=== PATIENT | female | born 1990 | race Caucasian/White ===

== ENCOUNTER 2019-12-21 14:52 | Observation (INO) | payer BC ==
[2019-12-21] MEDS ORDERED: NALBUPHINE HCL INJ 10 MG/1 ML AMPULE INJ ONE (15:54)
[2019-12-21] MEDS ORDERED: ACETAMINOPHEN WITH CODEINE #3 TABLET PO PRN ×2 (16:21)
[2019-12-21 16:30] LABS: APPEARANCE,URINE SLIGHTLY-CLOUDY; BILIRUBIN,URINE NEGATIVE (NEGATIVE); COLOR,URINE YELLOW; GLUCOSE, URINE NEGATIVE (NEGATIVE); KETONES,URINE NEGATIVE (NEGATIVE); LEUKOCYTE ESTERASE,URINE LARGE (NEGATIVE); NITRITE,URINE NEGATIVE (NEGATIVE); PROTEIN,URINE NEGATIVE (NEGATIVE); URINE SPECIFIC GRAVITY 1.008; UROBILINOGEN,URINE NEGATIVE mg/dL (<2.0)
[2019-12-21 16:42] LABS: URINE AMPHETAMINES SCREEN NEGATIVE; URINE BARBITURATES SCREEN NEGATIVE; URINE BENZODIAZEPINES SCREEN NEGATIVE; URINE COCAINE SCREEN NEGATIVE; URINE MARIJUANA (THC) SCREEN NEGATIVE; URINE METHADONE SCREEN NEGATIVE; URINE PHENCYCLIDINE SCREEN NEGATIVE
[2019-12-21] MEDS ORDERED: CEFTRIAXONE 1 GM/D5W RTU 1 GM/50 ML RTUPB IV ONE (16:42)
--- NOTE | 2019-12-21 16:58 | RADIOLOGY REPORT (SQ) ---
EXAM DESCRIPTION: U/S RETROPERITON (RENAL/AORTA) IMAGES COMPLETED DATE/TIME: 12/21/2019 4:41 pm REASON FOR STUDY: left renal uS for r/o abscess, stone COMPARISON: None. TECHNIQUE: Dynamic and static grayscale images acquired of the kidneys and bladder and recorded on P ACS. Additional selected color Doppler and spectral images recorded. LIMITATIONS: None. FINDINGS: RIGHT KIDNEY: Normal size, 10.1 cm. Normal echogenicity. No solid or suspicious masses. No hydronephrosis. No calcifications. LEFT KIDNEY: Normal size, 12.6 cm. Normal echogenicity. No solid or suspicious masses. Moderate hyd ronephrosis. No calcifications. BLADDER: Bladder is empty. OTHER FINDINGS: No other significant finding. IMPRESSION: Moderate left hydronephrosis. TECHNICAL DOCUMENTATION: JOB ID: [id number] 2010 [employer]- All Rights Reserved Reading location - IP/workstation name: [email or web address]
[2019-12-21 16:59] LABS: ABSOLUTE EOSINOPHILS # (AUTO) 0.1 10^3/uL (0.0-0.6); ABSOLUTE LYMPHOCYTES (AUTO) 1.5 10^3/uL (0.5-4.7); ABSOLUTE MONOCYTES (AUTO) 0.7 10^3/uL (0.1-1.4); ABSOLUTE NEUT (AUTO) 9.1 10^3/uL (1.7-8.2); BASOPHILS % (AUTO) 0.3 % (0-2); EOSINOPHILS % (AUTO) 0.7 % (0-6); HEMATOCRIT 35.8 % (36.0-47.0); HEMOGLOBIN 12.3 g/dL (12.0-15.5); LYMPHOCYTES % (AUTO) 13.2 % (13-45); MEAN CORPUSCULAR HEMOGLOBIN 29.2 pg (27.0-33.4); MEAN CORPUSCULAR HGB CONC 34.5 g/dL (32.0-36.0); MEAN CORPUSCULAR VOLUME 85 fl (80-97); MONOCYTES % (AUTO) 6.4 % (3-13); PLATELET COUNT 177 10^3/uL (150-450); RED BLOOD COUNT 4.22 10^6/uL (3.72-5.28); RED CELL DISTRIBUTION WIDTH 13.1 % (11.5-14.0); SEGMENTED NEUTROPHILS % (AUTO) 79.4 % (42-78); TOTAL CELLS COUNTED % (AUTO) 100 %; WHITE BLOOD COUNT 11.5 10^3/uL (4.0-10.5)
--- NOTE | 2019-12-21 17:00 | Admission Physical ---
Datetime Report Generated by CPN: 12/21/2019 17:00 CURRENT ADMISSION Chief Complaint: Sent from OB Office for Evaluation and Treatment - Please Specify Indication for Induction: Not Applicable Admit Impression : No Active Labor; Medical Complication Admit Impression- Other: Pyelonephritis Lt Admit Plan- Other: GDM 38 wks ALLERGIES Medication Allergies: No Medication Allergies: No Known Allergies (12/21/2019) Latex: No Latex Allergies OBSTETRICAL HISTORY EDC: 12/30/2019 00:00 : 1 Para: 0 Term: 0 : 0 SAB: 0 IAB: 0 Ectopic: 0 Livin Cesareans: 0 VBACs: 0 Multiple Births: 0 Gestational Diabetes: Yes Rh Sensitization: No Incompetent Cervix: No ALEXANDRE: No Infertility: No ART Treatment: No Uterine Anomaly: No IUGR: No Hx Previous C/S: No Macrosomia: No Hx Loss/Stillborn: No PIH: No Hx : No Placenta Previa/Abruption: No Depression/PP Depression: No PTL/PROM: No Post Hemorrhage: No Current Procedures: Ultrasound; NST Obstetrical History Comments: G1- Current GDM SEE RECORDS Alcohol: No Marijuana : No Cocaine: No Other Illicit Drugs: No Cigarettes: Never Smoker. 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 Surgery: No Heart Disease: No Hosp/Surgery: No Autoimmune Disorder: No Anesthetic Complications: No Kidney Disease: Yes Abnormal Pap Smear: No Neuro/Epilepsy: No Psychiatric Disorders: No Other Medical Diseases: No Hepatitis/Liver Disease: No Significant Family History: No Varicosities/Phlebitis: No Trauma/Violence : No Thyroid Dysfunction: No INFECTIOUS HISTORY Gonorrhea: No Genital Herpes: No Chlamydia: No Tuberculosis: No Syphilis: No Hepatitis: No HIV/AIDS Exposure: No Rash or Viral Illness: No HPV: No PHYSICAL EXAM General: Normal HEENT: Deferred Neurologic: Normal Thyroid: Deferred Heart: Normal Lungs: Normal Breast: Deferred Back: Abnormal Abdomen: Normal Genitourinary Exam: Normal Extremities: Normal DTRs: Deferred Pelvic Type: Not Done Physical Exam Comments: sent from office for L CVAT cervix exam per RN closed VAGINAL EXAM Dilatation: 0 FETUS A EGA: 38.5 FHR- Baseline: 130 Variability: Moderate 6-25bpm FHR Category: Category I Presentation: Vertex Admit Comment: GDM, well controlled with diet Had + Urine Culture for E-Coli on 11/29 was treated inadequately with macrobid finished abx over a week ago presented to [facility] for routine PNC care with c/o back pain Denies fever, but reports new onset of nausea this week, no vomiting PLANS FOR LABOR AND DELIVERY Labor and Delivery: None Pain Management: Epidural Feeding Preference: Breast Benefit of Breast Feed Discussed: Yes Circumcision: Yes INFORMED CONSENT Assignment: Carolyn Johnson MD Signature: with User ID: [email or web address] : with User ID: [email or web address]
[2019-12-21 17:35] LABS: ALBUMIN 3.6 g/dL (3.5-5.0); ALKALINE PHOSPHATASE 149 U/L (38-126); ANION GAP 8 (5-19); ASPARTATE AMINO TRANSFERASE 26 U/L (14-36); BILIRUBIN,DIRECT 0.1 mg/dL (0.0-0.4); BILIRUBIN,TOTAL 0.3 mg/dL (0.2-1.3); BLOOD UREA NITROGEN 11 mg/dL (7-20); CALCIUM 9.3 mg/dL (8.4-10.2); CARBON DIOXIDE 24 mmol/L (22-30); CHLORIDE 104 mmol/L (98-107); GLUCOSE 76 mg/dL (75-110); POTASSIUM 4.1 mmol/L (3.6-5.0); TOTAL PROTEIN 6.3 g/dL (6.3-8.2)
[2019-12-21] MEDS: CEFTRIAXONE 1 GM/D5W RTU 1 GM/50 ML RTUPB IV SCH (17:45)
[2019-12-21] MEDS ORDERED: ACETAMINOPHEN WITH CODEINE #3 TABLET ONE (18:03)
[2019-12-21] MEDS: RINGERS SOLUTION,LACTATED 1,000 ML IV PRN (18:05)
[2019-12-22] MEDS: CEFTRIAXONE 1 GM/D5W RTU 1 GM/50 ML RTUPB IV SCH ×2 (06:22→17:55)
--- NOTE | 2019-12-22 09:28 | PDOC PROGRESS REPORT ---
Subjective Progress Note for:: 12/22/19 Subjective:: pt feels better Reason For Visit: LABOR CHECK/23 HOUR OBS Physical Exam - Physical Exam Vital Signs: Temp Pulse Resp BP Pulse Ox 97.9 F 72 16 103/59 L 100 12/22/19 08:41 12/22/19 08:00 12/22/19 08:00 12/22/19 08:00 12/22/19 08:00 Intake & Output 12/21/19 12/22/19 12/23/19 06:59 06:59 06:59 Output Total 300 Balance -300 Weight 74.389 kg General appearance: PRESENT: no acute distress Respiratory exam: PRESENT: clear to auscultation dennise Cardiovascular exam: PRESENT: RRR Result Laboratory Results: 12/21/19 16:14 12/21/19 16:14 12/21/19 12/21/19 12/21/19 15:16 16:14 16:14 WBC 11.5 H RBC 4.22 Hgb 12.3 Hct 35.8 L MCV 85 MCH 29.2 MCHC 34.5 RDW 13.1 Plt Count 177 Seg Neutrophils % 79.4 H Sodium Potassium Chloride Carbon Dioxide Anion Gap BUN Creatinine Est GFR ( Amer) Glucose Calcium Total Bilirubin AST Alkaline Phosphatase Total Protein Albumin Urine Color YELLOW Urine Appearance SLIGHTLY-CLOUDY Urine pH 7.0 Ur Specific [place] 1.008 Urine Protein NEGATIVE Urine Glucose (UA) NEGATIVE Urine Ketones NEGATIVE Urine Blood SMALL H Urine Nitrite NEGATIVE Ur Leukocyte Esterase LARGE H Urine WBC (Auto) 111 Urine RBC (Auto) 4 Blood Type O POSITIVE Antibody Screen NEGATIVE 12/21/19 16:14 WBC RBC Hgb Hct MCV MCH MCHC RDW Plt Count Seg Neutrophils % Sodium 135.7 L Potassium 4.1 Chloride 104 Carbon Dioxide 24 Anion Gap 8 BUN 11 Creatinine 0.80 Est GFR ( Amer) > 60 Glucose 76 Calcium 9.3 Total Bilirubin 0.3 AST 26 Alkaline Phosphatase 149 H Total Protein 6.3 Albumin 3.6 Urine Color Urine Appearance Urine pH Ur Specific [place] Urine Protein Urine Glucose (UA) Urine Ketones Urine Blood Urine Nitrite Ur Leukocyte Esterase Urine WBC (Auto) Urine RBC (Auto) Blood Type Antibody Screen Impressions: Renal Ultrasound 12/21/19 15:46 IMPRESSION: Moderate left hydronephrosis. Assessment & Plan - Time Time Spent with patient: Less than 15 minutes Medications reviewed and adjusted accordingly: Yes - Plan Summary Plan Summary: continue IV antibiotics
[2019-12-22] MEDS: RINGERS SOLUTION,LACTATED 1,000 ML IV PRN (17:55)
[2019-12-23] MEDS: CEFTRIAXONE 1 GM/D5W RTU 1 GM/50 ML RTUPB IV SCH ×2 (05:36→17:09)
[2019-12-23 07:08] LABS: ABSOLUTE EOSINOPHILS # (AUTO) 0.1 10^3/uL (0.0-0.6); ABSOLUTE LYMPHOCYTES (AUTO) 1.7 10^3/uL (0.5-4.7); ABSOLUTE MONOCYTES (AUTO) 0.8 10^3/uL (0.1-1.4); ABSOLUTE NEUT (AUTO) 5.8 10^3/uL (1.7-8.2); BASOPHILS % (AUTO) 0.3 % (0-2); EOSINOPHILS % (AUTO) 1.5 % (0-6); HEMATOCRIT 31.3 % (36.0-47.0); HEMOGLOBIN 10.8 g/dL (12.0-15.5); LYMPHOCYTES % (AUTO) 19.8 % (13-45); MEAN CORPUSCULAR HEMOGLOBIN 29.4 pg (27.0-33.4); MEAN CORPUSCULAR HGB CONC 34.5 g/dL (32.0-36.0); MEAN CORPUSCULAR VOLUME 85 fl (80-97); MONOCYTES % (AUTO) 9.8 % (3-13); PLATELET COUNT 145 10^3/uL (150-450); RED BLOOD COUNT 3.68 10^6/uL (3.72-5.28); RED CELL DISTRIBUTION WIDTH 13.2 % (11.5-14.0); SEGMENTED NEUTROPHILS % (AUTO) 68.6 % (42-78); TOTAL CELLS COUNTED % (AUTO) 100 %; WHITE BLOOD COUNT 8.5 10^3/uL (4.0-10.5)
--- NOTE | 2019-12-23 10:27 | PDOC DISCHARGE SUMMARY ---
Impression - Admit/DC Date/PCP Admission Date/Primary Care Provider: 12/21/19 16:03 JAYDEN GARCIA MD Discharge Date: 12/23/19 - Discharge Diagnosis (1) Pyelonephritis affecting Is this a current diagnosis for this admission?: Yes - Additional Information Resuscitation Status: Full Code Discharge Diet: As Tolerated Discharge Activity: Activity As Tolerated Referrals: JAYDEN GARCIA MD [Primary Care Provider] - Home Medications: Prenat 115/Iron Fum/Folic/Dss [ 19 Tablet] 1 each PO DAILY 12/21/19 History of Present Illiness History of Present Illness: JORGE LUIS KRAUS is a 29 year old female admitted with pyelo and placed on IV anitibiotics. pt remained afebrile and wbc now wnl Physical Exam - Physical Exam Vital Signs: Temp Pulse Resp BP Pulse Ox 97.3 F 78 16 101/50 L 100 12/23/19 07:03 12/23/19 07:03 12/23/19 07:03 12/23/19 07:03 12/23/19 07:03 Intake & Output 12/22/19 12/23/19 12/24/19 06:59 06:59 06:59 Intake Total 50 1050 Output Total 300 Balance -250 1050 Weight 74.389 kg General appearance: PRESENT: no acute distress Respiratory exam: PRESENT: clear to auscultation dennise Cardiovascular exam: PRESENT: RRR Results Laboratory Results: WBC 8.5 10^3/uL (4.0-10.5) 12/23/19 06:52 RBC 3.68 10^6/uL (3.72-5.28) L 12/23/19 06:52 Hgb 10.8 g/dL (12.0-15.5) L 12/23/19 06:52 Hct 31.3 % (36.0-47.0) L 12/23/19 06:52 MCV 85 fl (80-97) 12/23/19 06:52 MCH 29.4 pg (27.0-33.4) 12/23/19 06:52 MCHC 34.5 g/dL (32.0-36.0) 12/23/19 06:52 RDW 13.2 % (11.5-14.0) 12/23/19 06:52 Plt Count 145 10^3/uL (150-450) L 12/23/19 06:52 Lymph % (Auto) 19.8 % (13-45) 12/23/19 06:52 [place] % (Auto) 9.8 % (3-13) 12/23/19 06:52 Eos % (Auto) 1.5 % (0-6) 12/23/19 06:52 Baso % (Auto) 0.3 % (0-2) 12/23/19 06:52 Absolute Neuts (auto) 5.8 10^3/uL (1.7-8.2) 12/23/19 06:52 Absolute Lymphs (auto) 1.7 10^3/uL (0.5-4.7) 12/23/19 06:52 Absolute Monos (auto) 0.8 10^3/uL (0.1-1.4) 12/23/19 06:52 Absolute Eos (auto) 0.1 10^3/uL (0.0-0.6) 12/23/19 06:52 Absolute Basos (auto) 0.0 10^3/uL (0.0-0.2) 12/23/19 06:52 Seg Neutrophils % 68.6 % (42-78) 12/23/19 06:52 Sodium 135.7 mmol/L (137-145) L 12/21/19 16:14 Potassium 4.1 mmol/L (3.6-5.0) 12/21/19 16:14 Chloride 104 mmol/L (98-107) 12/21/19 16:14 Carbon Dioxide 24 mmol/L (22-30) 12/21/19 16:14 Anion Gap 8 (5-19) 12/21/19 16:14 BUN 11 mg/dL (7-20) 12/21/19 16:14 Creatinine 0.80 mg/dL (0.52-1.25) 12/21/19 16:14 Est GFR ( Amer) > 60 (>60) 12/21/19 16:14 Est GFR (MDRD) Non-Af > 60 (>60) 12/21/19 16:14 Glucose 76 mg/dL (75-110) 12/21/19 16:14 Calcium 9.3 mg/dL (8.4-10.2) 12/21/19 16:14 Total Bilirubin 0.3 mg/dL (0.2-1.3) 12/21/19 16:14 Direct Bilirubin 0.1 mg/dL (0.0-0.4) 12/21/19 16:14 Neonat Total Bilirubin Not Reportable 12/21/19 16:14 Neonat Direct Bilirubin Not Reportable 12/21/19 16:14 Neonat Indirect Bili Not Reportable 12/21/19 16:14 AST 26 U/L (14-36) 12/21/19 16:14 ALT 12 U/L (<35) 12/21/19 16:14 Alkaline Phosphatase 149 U/L (38-126) H 12/21/19 16:14 Total Protein 6.3 g/dL (6.3-8.2) 12/21/19 16:14 Albumin 3.6 g/dL (3.5-5.0) 12/21/19 16:14 Urine Color YELLOW 12/21/19 15:16 Urine Appearance SLIGHTLY-CLOUDY 12/21/19 15:16 Urine pH 7.0 (5.0-9.0) 12/21/19 15:16 Ur Specific [place] 1.008 12/21/19 15:16 Urine Protein NEGATIVE mg/dL (NEGATIVE) 12/21/19 15:16 Urine Glucose (UA) NEGATIVE mg/dL (NEGATIVE) 12/21/19 15:16 Urine Ketones NEGATIVE mg/dL (NEGATIVE) 12/21/19 15:16 Urine Blood SMALL (NEGATIVE) H 12/21/19 15:16 Urine Nitrite NEGATIVE (NEGATIVE) 12/21/19 15:16 Urine Bilirubin NEGATIVE (NEGATIVE) 12/21/19 15:16 Urine Urobilinogen NEGATIVE mg/dL (<2.0) 12/21/19 15:16 Ur Leukocyte Esterase LARGE (NEGATIVE) H 12/21/19 15:16 Urine WBC (Auto) 111 /HPF 12/21/19 15:16 Urine RBC (Auto) 4 /HPF 12/21/19 15:16 Urine Bacteria (Auto) 1+ /HPF 12/21/19 15:16 Squamous Epi Cells Auto 5 /HPF 12/21/19 15:16 Urine Mucus (Auto) RARE /LPF 12/21/19 15:16 Urine Ascorbic Acid NEGATIVE (NEGATIVE) 12/21/19 15:16 Urine Opiates Screen NEGATIVE 12/21/19 15:16 Urine Methadone Screen NEGATIVE 12/21/19 15:16 Ur Barbiturates Screen NEGATIVE 12/21/19 15:16 Ur Phencyclidine Scrn NEGATIVE 12/21/19 15:16 Ur Amphetamines Screen NEGATIVE 12/21/19 15:16 U Benzodiazepines Scrn NEGATIVE 12/21/19 15:16 Urine Cocaine Screen NEGATIVE 12/21/19 15:16 U Marijuana (THC) Screen NEGATIVE 12/21/19 15:16 Blood Type O POSITIVE 12/21/19 16:14 Antibody Screen NEGATIVE 12/21/19 16:14 Impressions: Renal Ultrasound 12/21/19 15:46 IMPRESSION: Moderate left hydronephrosis. Plan Time Spent: Less than 30 Minutes Stroke Is this a Stroke Patient?: No Acute Heart Failure Is this a Heart Failure Patient?: No
[2019-12-23] MEDS: RINGERS SOLUTION,LACTATED 1,000 ML IV PRN (11:03)
[2019-12-23 16:12] VITALS: BP 103/52
== END 2019-12-23 18:38 | disposition home or self-care (01) ==
LOC: LC 14:52 → LR 16:03 → 2S 18:32
PROVIDERS: ADMIT Student in an Organized Health Care Education/Training Program; ATTEND Student in an Organized Health Care Education/Training Program
DX: O23.03 Infections of kidney in pregnancy, third trimester (principal); N13.6 Pyonephrosis; O24.410 Gestational diabetes mellitus in pregnancy, diet controlled; Z3A.38 38 weeks gestation of pregnancy
CPT/HCPCS: 86900; 86901; 36415 ×2; 87086; 86850; 85025 ×2; 87088; 86592; 80053; 81001; 87186; 80307; 76770; G0378 ×3; G0379; J7120 ×2; J0696 ×3; 99281

== ENCOUNTER 2020-01-07 18:55 | Inpatient (IN) | payer BC ==
[2020-01-07] MEDS ORDERED: RINGERS SOLUTION,LACTATED 1,000 ML IV ONE (19:07)
[2020-01-07] MEDS ORDERED: DINOPROSTONE 10 MG VAGINAL INSERT.SR PV PRN (19:07)
[2020-01-07] MEDS ORDERED: RINGERS SOLUTION,LACTATED 300 ML IV ONE (19:08)
[2020-01-07] MEDS ORDERED: ACETAMINOPHEN 325 MG TABLET PO PRN (19:08)
[2020-01-07] MEDS ORDERED: MAG HYDROX/AL HYDROX/SIMETH SUSP 30 ML UDCUP PO PRN (19:08)
[2020-01-07] MEDS ORDERED: ZOLPIDEM TARTRATE 5 MG TABLET PO PRN (19:08)
[2020-01-07] MEDS ORDERED: DINOPROSTONE 10 MG VAGINAL INSERT.SR PV ONE (19:08)
[2020-01-07] MEDS ORDERED: RINGERS SOLUTION,LACTATED 1,000 ML IV PRN (19:08)
[2020-01-07] MEDS ORDERED: DINOPROSTONE 10 MG VAGINAL INSERT.SR ONE (19:48)
[2020-01-07 20:10] LABS: ABSOLUTE EOSINOPHILS # (AUTO) 0.1 10^3/uL (0.0-0.6); ABSOLUTE LYMPHOCYTES (AUTO) 1.6 10^3/uL (0.5-4.7); ABSOLUTE MONOCYTES (AUTO) 0.7 10^3/uL (0.1-1.4); ABSOLUTE NEUT (AUTO) 6.6 10^3/uL (1.7-8.2); BASOPHILS % (AUTO) 0.2 % (0-2); EOSINOPHILS % (AUTO) 0.9 % (0-6); HEMATOCRIT 34.9 % (36.0-47.0); HEMOGLOBIN 12.1 g/dL (12.0-15.5); LYMPHOCYTES % (AUTO) 17.9 % (13-45); MEAN CORPUSCULAR HEMOGLOBIN 29.5 pg (27.0-33.4); MEAN CORPUSCULAR HGB CONC 34.6 g/dL (32.0-36.0); MEAN CORPUSCULAR VOLUME 85 fl (80-97); MONOCYTES % (AUTO) 7.6 % (3-13); PLATELET COUNT 166 10^3/uL (150-450); RED BLOOD COUNT 4.09 10^6/uL (3.72-5.28); RED CELL DISTRIBUTION WIDTH 13.2 % (11.5-14.0); SEGMENTED NEUTROPHILS % (AUTO) 73.4 % (42-78); TOTAL CELLS COUNTED % (AUTO) 100 %
[2020-01-07 20:26] LABS: APPEARANCE,URINE CLOUDY; BILIRUBIN,URINE NEGATIVE (NEGATIVE); COLOR,URINE YELLOW; GLUCOSE, URINE NEGATIVE (NEGATIVE); KETONES,URINE NEGATIVE (NEGATIVE); LEUKOCYTE ESTERASE,URINE MODERATE (NEGATIVE); NITRITE,URINE NEGATIVE (NEGATIVE); PROTEIN,URINE NEGATIVE (NEGATIVE); URINE SPECIFIC GRAVITY 1.011; UROBILINOGEN,URINE NEGATIVE mg/dL (<2.0)
[2020-01-07] MEDS: RINGERS SOLUTION,LACTATED 1,000 ML IV PRN ×2 (20:26→22:44)
[2020-01-07 20:45] LABS: URINE AMPHETAMINES SCREEN NEGATIVE; URINE BARBITURATES SCREEN NEGATIVE; URINE BENZODIAZEPINES SCREEN NEGATIVE; URINE COCAINE SCREEN NEGATIVE; URINE MARIJUANA (THC) SCREEN NEGATIVE; URINE METHADONE SCREEN NEGATIVE; URINE PHENCYCLIDINE SCREEN NEGATIVE
[2020-01-07] MEDS ORDERED: ZOLPIDEM TARTRATE 5 MG TABLET ONE (22:39)
[2020-01-08] MEDS ORDERED: ONDANSETRON HCL INJ/PF 4 MG/2 ML SDV ONE (04:27)
[2020-01-08] MEDS ORDERED: ONDANSETRON HCL INJ/PF 4 MG/2 ML SDV IV ONE (04:29)
[2020-01-08] MEDS ORDERED: NALBUPHINE HCL INJ 10 MG/1 ML AMPULE ONE (04:56)
[2020-01-08] MEDS ORDERED: PROMETHAZINE HCL INJ 25 MG/1 ML VIAL ONE (04:56)
[2020-01-08] MEDS ORDERED: PROMETHAZINE HCL INJ 25 MG/1 ML VIAL IV ONE (04:58)
[2020-01-08] MEDS ORDERED: NALBUPHINE HCL INJ 10 MG/1 ML AMPULE INJ ONE (04:58)
--- NOTE | 2020-01-08 05:16 | Admission Physical ---
Datetime Report Generated by CPN: 01/08/2020 05:16 CURRENT ADMISSION Chief Complaint: Scheduled Induction of Labor Indication for Induction: Post Dates Admit Impression : Term, Intrauterine ; Intact Membranes; Induction of Labor Admit Impression- Other: Pyelonephritis Lt Admit Plan: Admit to Unit; Initiate Labor Induction Protocol Admit Plan- Other: GDM 38 wks ALLERGIES Medication Allergies: No Medication Allergies: No Known Allergies (12/21/2019) Latex: No Latex Allergies OBSTETRICAL HISTORY EDC: 12/30/2019 00:00 : 1 Para: 0 Term: 0 : 0 SAB: 0 IAB: 0 Ectopic: 0 Livin Cesareans: 0 VBACs: 0 Multiple Births: 0 Gestational Diabetes: Yes Rh Sensitization: No Incompetent Cervix: No ALEXANDRE: No Infertility: No ART Treatment: No Uterine Anomaly: No IUGR: No Hx Previous C/S: No Macrosomia: No Hx Loss/Stillborn: No PIH: No Hx : No Placenta Previa/Abruption: No Depression/PP Depression: No PTL/PROM: No Post Hemorrhage: No Current Procedures: Ultrasound; NST Obstetrical History Comments: G1- Current GDM SEE RECORDS Alcohol: No Marijuana : No Cocaine: No Other Illicit Drugs: No Cigarettes: Never Smoker. 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 Heart Disease: No Hosp/Surgery: No Autoimmune Disorder: No Anesthetic Complications: No Kidney Disease: Yes Abnormal Pap Smear: No Neuro/Epilepsy: No Psychiatric Disorders: No Other Medical Diseases: No Hepatitis/Liver Disease: No Significant Family History: No Varicosities/Phlebitis: No Trauma/Violence : No Thyroid Dysfunction: No Medical History Comments: GDM with current , Pyelonephritis with current Dec 2019 INFECTIOUS HISTORY Gonorrhea: No Genital Herpes: No Chlamydia: No Tuberculosis: No Syphilis: No Hepatitis: No HIV/AIDS Exposure: No Rash or Viral Illness: No HPV: No PHYSICAL EXAM General: Normal HEENT: Normal Neurologic: Normal Thyroid: Normal Heart: Normal Lungs: Normal Breast: Deferred Back: Normal Abdomen: Normal Genitourinary Exam: Normal Extremities: Normal DTRs: Normal Pelvic Type: Adequate Physical Exam Comments: sent from office for L CVAT cervix exam per RN closed Vital Signs: Reviewed VAGINAL EXAM Dilatation: 1 Effacement: 50 Station: -2 MEMBRANES Pooling: Negative Membranes: Intact FETUS A EGA: 41.2 Monitoring: External US FHR- Baseline: 120 Variability: Moderate 6-25bpm Decelerations: None FHR Category: Category I Presentation: Vertex Admit Comment: EFW 8-9 lbs, gdm PLANS FOR LABOR AND DELIVERY Labor and Delivery: None Pain Management: Epidural Feeding Preference: Breast Benefit of Breast Feed Discussed: Yes Circumcision: Yes INFORMED CONSENT Assignment: Carolyn Johnson MD Signature: with User ID: Eric : with User ID: Eric
[2020-01-08] MEDS ORDERED: OXYTOCIN/0.9 % SODIUM CHLORIDE 30 UNIT/500 ML RTUINJ IV PRN (07:57)
[2020-01-08] MEDS ORDERED: EPHEDRINE SULFATE INJ 50 MG/1 ML AMPULE ONE (08:25)
[2020-01-08] MEDS ORDERED: FENTANYL/BUPIVACAINE/NS/PF 300 MCG/150 ML RTUINJ EPI ONE ×2 (08:26→23:03)
[2020-01-08] MEDS ORDERED: ROPIVACAINE HCL 0.2% INJ/PF (2 MG/ML) 20 ML SDV ONE (08:26)
[2020-01-08] MEDS ORDERED: OXYTOCIN/0.9 % SODIUM CHLORIDE 30 UNIT/500 ML RTUINJ ONE (10:07)
[2020-01-08] MEDS ORDERED: ROPIVACAINE HCL 0.5% INJ/PF (5 MG/1 ML) 30 ML SDV ONE (12:12)
[2020-01-08] MEDS: RINGERS SOLUTION,LACTATED 1,000 ML IV PRN ×2 (12:46→17:47)
[2020-01-08] MEDS ORDERED: ACETAMINOPHEN 325 MG TABLET ONE (15:18)
[2020-01-08] MEDS ORDERED: AMPICILLIN SOD INJ 2 GM VIAL IV ONE (16:23)
[2020-01-08] MEDS ORDERED: GENTAMICIN SULFATE INJ 80 MG/2 ML VIAL IV ONE (16:31)
[2020-01-08] MEDS ORDERED: DIPHENHYDRAMINE HCL 50 MG/ML VIAL IV ONE (16:51)
[2020-01-08] MEDS ORDERED: DIPHENHYDRAMINE HCL 50 MG/ML VIAL ONE (16:57)
[2020-01-08] MEDS ORDERED: AMPICILLIN SOD INJ 2 GM VIAL ONE (16:58)
[2020-01-08] MEDS ORDERED: GENTAMICIN SULFATE 100 MG in DEXTROSE 5%-WATER 100 ML IV ONE (18:00)
[2020-01-08] MEDS ORDERED: AMPICILLIN SOD INJ 2 GM VIAL IV SCH (23:00)
[2020-01-08] MEDS: AMPICILLIN SODIUM 2 GM in NORMAL SALINE 100 ML IV SCH (23:18)
[2020-01-09] MEDS ORDERED: GENTAMICIN SULFATE INJ 80 MG/2 ML VIAL IV SCH (00:30)
[2020-01-09] MEDS: AMPICILLIN SODIUM 2 GM in NORMAL SALINE 100 ML IV SCH ×3 (05:03→19:47)
[2020-01-09] MEDS ORDERED: LIDOCAINE 1% INJ-PF (10 MG/ML) 30 ML SDV ONE (05:21)
[2020-01-09] MEDS ORDERED: IBUPROFEN 800 MG TABLET ONE (06:05)
[2020-01-09] MEDS ORDERED: ZOLPIDEM TARTRATE 5 MG TABLET PO PRN (06:27)
[2020-01-09] MEDS ORDERED: OXYTOCIN/0.9 % SODIUM CHLORIDE 30 UNIT/500 ML RTUINJ IV PRN (06:27)
[2020-01-09] MEDS ORDERED: DIPH/PERTUSS(ACELL)/TETANUS VAC/PF 0.5 ML SYR (>=10YO) IM PRN (06:27)
[2020-01-09] MEDS ORDERED: DIBUCAINE 1% OINTMENT 28 GM TP PRN (06:27)
[2020-01-09] MEDS ORDERED: PROMETHAZINE HCL 25 MG SUPP.RECT PR PRN (06:27)
[2020-01-09] MEDS ORDERED: PSEUDOEPHEDRINE HCL 30 MG TABLET PO PRN (06:27)
[2020-01-09] MEDS ORDERED: MAGNESIUM HYDROXIDE SUSP 30 ML UDCUP PO PRN (06:27)
[2020-01-09] MEDS ORDERED: MEASLES,MUMPS&RUBELLA VACC/PF 0.5 ML VIAL SUBCUT PRN (06:27)
[2020-01-09] MEDS ORDERED: PROMETHAZINE HCL INJ 25 MG/1 ML VIAL IV PRN (06:27)
[2020-01-09] MEDS ORDERED: NA PHOS,M-B/NA PHOS,DI-BA (ADULT) 133 ML ENEMA PR PRN (06:27)
[2020-01-09] MEDS ORDERED: ACETAMINOPHEN 325 MG TABLET PO PRN (06:27)
[2020-01-09] MEDS ORDERED: DIPHENHYDRAMINE HCL 25 MG CAPSULE PO PRN (06:27)
[2020-01-09] MEDS ORDERED: ACETAMINOPHEN 650 MG SUPP.RECT PR PRN (06:27)
[2020-01-09] MEDS ORDERED: PROMETHAZINE HCL 25 MG TABLET PO PRN (06:27)
[2020-01-09] MEDS ORDERED: BENZOCAINE/MENTHOL AEROSOL SPRAY 56 ML TOP PRN (06:27)
[2020-01-09] MEDS ORDERED: GLYCERIN/WITCH HAZEL LEAF 1 EACH MED..WIPE TP PRN (06:27)
[2020-01-09] MEDS ORDERED: ACETAMINOPHEN WITH CODEINE #3 TABLET PO PRN ×2 (06:27)
--- NOTE | 2020-01-09 08:53 | Delivery Summary ---
Del Sum A-C Datetime Report Generated by CPN: 01/09/2020 08:52 DELIVERY PERSONNEL DELIVERY PERSONNEL: [id number] Delivery Doctor:: Kalli Mansfield MD Labor and Delivery Nurse:: Briana Carvalho RNcar sander Nurse:: Chelle Mckee RN Idea Man/GENERAL OPHTHALMOLOGIST: Cinthyamonae Tobar, ST MATERNAL INFORMATION Delivery Anesthesia: Epidural Medications After Delivery: Pitocin 30 Units in 500ml NS/D5W Estimated Blood Loss (ml): 200 Maternal Complications: Chorioamnionitis LABOR SUMMARY EDC: 12/30/2019 00:00 No. Babies in Womb: 1 Attempted: No Labor Anesthesia: Epidural LABOR INFORMATION Reason for Induction: Post Dates; Maternal Diabetes Onset of Labor: 01/08/2020 05:03 Complete Dilatation: 01/09/2020 02:50 Cervical Ripening Agents: Cervidil Oxytocin: Induction Group B Beta Strep: Negative Antibiotics # of Doses: 2 Antibiotics Time of Last Dose: 01/09/2020 05:24 Name of Antibiotic Given: amp and gent Steroids Given: None Reason Steroids Not Administered: Not Applicable MEMBRANES Membranes Rupture Method: Spontaneous Rupture of Membranes: 01/08/2020 14:08 Length of Rupture (hr): 15.13 Amniotic Fluid Color: Light Meconium? Amniotic Fluid Amount: Moderate Amniotic Fluid Odor: Normal STAGES OF LABOR Stage 1 hr: 21 Stage 1 min: 47 Stage 2 hr: 2 Stage 2 min: 26 Stage 3 hr: 0 Stage 3 min: 3 Total Time in Labor hr: 24 Total Time in Labor min: 16 VAGINAL DELIVERY Episiotomy: None Laceration #1: Vaginal Laceration Extension #1: First Degree Laceration Repair: Yes Laceration Repair Note: 2-0 chromic running stitch done on left labia due to 1st degree gash. Sponge Count Correct: Yes Sharps Count Correct: Yes CSECTION DELIVERY Primary Indication: N/A BABY A INFORMATION Infant Delivery Date/Time: 01/09/2020 05:16 Method of Delivery: Vaginal Nurse Controlled Delivery: No Born in Route : No : N/A Forceps: N/A Vacuum Extraction: N/A Shoulder Dystocia : No PRESENTATION/POSITION BABY A Presentation: Cephalic Cephalic Presentation: Vertex Vertex Position: Left Occipital Anterior Breech Presentation: N/A PLACENTA INFORMATION BABY A Placenta Delivery Time : 01/09/2020 05:19 Placenta Method of Delivery: Spontaneous Placenta Status: Delivered SCORES BABY A Heart Rate 1 min: >100 bpm Resp Effort 1 min: Absent Reflex Irritability 1 min: No Response Muscle Tone 1 min: Flaccid Color 1 min: Blue/Pale Resuscitation Effort 1 min: Tactile Stimulation; Oxygen; PPV/NCPAP SCORE 1 MIN: 2 Heart Rate 5 min: >100 bpm Resp Effort 5 min: Slow, Irregular Reflex Irritability 5 min: Grimace Muscle Tone 5 min: Some Flexion of Extremities Color 5 min: Body [place]ridge, Extremities Blue Resuscitation Effort 5 min: Tactile Stimulation; Oxygen SCORE 5 MIN: 6 Heart Rate 10 min: >100 bpm Resp Effort 10 min: Good Cry Reflex Irritability 10 min: Cough or Sneeze or Pulls Away Muscle Tone 10 min: Some Flexion of Extremities Color 10 min: Body [place], Extremities Blue SCORE 10 MIN: 8 INFORMATION BABY A Gestational Age at Delivery: 41.2 Gestational Status: Late Term- 41- 41.6 Weeks Outcome : Liveborn Infant Condition : Fair Sex: Male IDENTIFICATION BABY A Infant Verification Date/Time: 01/09/2020 05:32 ID Band Number: [id number] Mother's Name Verified: Yes Infant RN Verifying : Ilda CantuPIYUSH Additional Verifying Personnel: Ousmane Velasquez RN WEIGHT/LENGTH BABY A Infant Birthweight (gm): 3790 Weight (lb): 8 Infant Weight (oz): 6 Length (in): 21.25 Infant Length (cm): 53.98 CORD INFORMATION BABY A No. Cord Vessels: 3 Nuchal Cord : Around Neck x1, Tight Cord Blood Taken: Yes-For Eval (Mom's Blood Type - or O+) Suction: Mouth; Nose BABY B INFORMATION : N/A SIGNATURES Signature: with User ID: Mari : I was personally available for consultation and serving as supervising physician for the MLP.
--- NOTE | 2020-01-09 08:53 | Birth Certificate Data ---
Cert Data Datetime Report Generated by CPN: 01/09/2020 08:52 CERTIFICATE DATA Delivery Provider: Kalli Mansfield MD (12/21/2019 15:25:AMY Hook) 47a. Care: Yes (12/21/2019 15:25:Ashley Suarez RN) 47b. Date of First Visit: 06/05/2019 00:00 (12/21/2019 15:25:Ashley Suarez RN) 47c. Date of Last Visit: 12/21/2019 00:00 (12/21/2019 15:25:Ashley Suarez RN) 47d. Number of Visits: 14 (12/21/2019 15:25:Ashley Suarez RN) 48a. Number of Prev Live Births: 0 (12/21/2019 15:25:Ashley Suarez RN) 48b. Now Livin (12/21/2019 15:25:Ashley Suarez RN) 48c. Live Births Now : 0 (12/21/2019 15:25:QS system process) 48e. Losses: 0 (12/21/2019 15:25:Ashley Suarez RN) RISK FACTORS IN THIS 49a. Diabetes: Yes (12/21/2019 15:25:Ashley Suarez RN) Type of Diabetes: Gestational Diabetes (12/21/2019 15:25:Ashley Suarez RN) 49b. Hypertension: No (12/21/2019 15:25:Ashley Suarez RN) 49c. Previous Births: 0 (12/21/2019 15:25:Ashley Suarez RN) 49d. Stillborns: No (12/21/2019 15:25:Ashley Suarez RN) 49d. IUGR: No (12/21/2019 15:25:Ashley Suarez RN) 49e. Infertility Treatment: No (12/21/2019 15:25:Ashley Suarez RN) 49f. Previous Cesareans: 0 (12/21/2019 15:25:Ashley Suarez RN) Mother's Height 50b. Height Inches: 67 (01/09/2020 07:44:QS system process) Mother's Weight 51a. Pre- Weight (lbs): 149 (12/21/2019 15:25:Ashley Suarez RN) 51b. Weight at Delivery (lbs): 172 (01/09/2020 07:44:QS system process) 52. Dt Last Normal Menses Began: 03/15/2019 00:00 (12/21/2019 15:25:Chelle Mckee RN) Infections Present/Treated 53a. Gonorrhea: No (12/21/2019 15:25:Ashley Suarez RN) Results this Hospital Visit : Negative (12/21/2019 15:25:Ashley Suarez RN) 53b. Syphilis: No (12/21/2019 15:25:Ashley Suarez RN) Results this Hospital Visit: NONREACTIVE (01/07/2020 19:24:QS system process) 53c. Chlamydia: No (12/21/2019 15:25:Ashley Suarez RN) Results this Hospital Visit: Negative (12/21/2019 15:25:Ashley Suarez RN) 53d. Hepatitis B: No (12/21/2019 15:25:Ashley Suarez RN) Results this Hospital Visit: Negative (12/21/2019 15:25:Ashley Suarez RN) 53e. Hepatitis C: Negative (12/21/2019 15:25:Lucila Hammond RN) 53h. Mother Tested for HBsAG: Yes (12/21/2019 15:25:Ashley Suarez RN) 53i. Date Tested: 06/05/2019 00:00 (12/21/2019 15:25:Ashley Suarez RN) 53j. Test Result: Negative (12/21/2019 15:25:Ashley Suarez RN) Obstetric Procedures 54a, b, c. Obstetric Procedures: Ultrasound; NST (12/21/2019 15:25:Ashley Suarez RN) Cigarette Smoking Cigarette Smoking: Never Smoker. [id number] (12/21/2019 15:25:Ashley Suarez RN) 55a. 3 Months Before Preg - Ci (12/21/2019 15:25:Ashley Suarez RN) 55a. Packs: 0 (12/21/2019 15:25:Ashley Suarez RN) 55b. 1st Trimester of Preg- Ci (12/21/2019 15:25:Ashley Suarez RN) 55b. Packs: 0 (12/21/2019 15:25:Ashley Suarez RN) 55c. 2nd Trimester of Preg- Ci (12/21/2019 15:25:Ashley Suarez RN) 55c. Packs: 0 (12/21/2019 15:25:Ashley Suarez RN) 55d. 3rd Trimester of Preg- Ci (12/21/2019 15:25:Ashley Suarez RN) 55d. Packs: 0 (12/21/2019 15:25:Ashley Suarez RN) Onset of Labor 56a. PROM >12 Hrs: 15.13 (12/21/2019 15:25:QS system process) 56b. Precipitous Labor <3 Hrs: 24 (12/21/2019 15:25:QS system process) 56c. Prolonged Labor > 20 Hrs: 24 (12/21/2019 15:25:QS system process) 57a. Induction of Labor: Induction (12/21/2019 15:25:Chelle Mckee RN) 57a. Induction of Labor: Cervidil (01/07/2020 20:23:Lucila Hammond RN) 57c. Non-Vertex Presentation A: Vertex (12/21/2019 15:25:AMY Hook) 57d. Steroids - Lung Mat: None (12/21/2019 15:25:Chelle Mckee RN) 57d. Steroids - Lung Mat: Not Applicable (12/21/2019 15:25:Chelle Mckee RN) 57e. Antibiotics During Labor: 01/09/2020 05:24 (12/21/2019 15:25:AMY Hook) 57f. Mat Chorio or Temp >100.4: 101.8 (12/21/2019 15:25:Briana Carvalho RN) 57g. Moderate/Heavy Meconium: Light Meconium? (01/08/2020 14:08:Chelle Mckee RN) 57h. Intolerance of Labor: N/A (12/21/2019 15:25:Briana Carvalho RN) 57i. Epidural/Spinal Anesthesia: Epidural (12/21/2019 15:25:Chelle Mckee RN) Method of Delivery 58a. Forceps - Unsuccessful A: N/A (12/21/2019 15:25:AMY Hook) 58b. Vacuum - Unsuccessful A: N/A (12/21/2019 15:25:AMY Hook) 58c. Presentation at 58c. Presentation at - A : Vertex (12/21/2019 15:25:Elisabeth Johnstonabram [facility]) 58c. Presentation at - A : N/A (12/21/2019 15:25:Chelle Mckee RN) 58c. Presentation at - A : Cephalic (01/08/2020 14:08:Yamileth Teresa [facility]) Final Route and Method of Del 58d. Baby A Route/Delivery: Vaginal (01/09/2020 05:16:Elisabeth AlysialeroyAMY valverde) 58e. Trial of Labor Attempted: No (12/21/2019 15:25:Chelle Mckee RN) 58e. Trial of Labor Attempted A: N/A (12/21/2019 15:25:Chelle Mckee RN) 58e. Trial of Labor Attempted B: N/A (12/21/2019 15:25:Chelle Mckee RN) Maternal Morbidity 59b. 3rd or 4th Degree Lacs: Vaginal (12/21/2019 15:25:Kalli Mansfield MD (ANDDO)) Birthweight Baby A: 3790 (12/21/2019 15:25:Pura Arango RN) 60a. Pounds : 8 (12/21/2019 15:25:QS system process) 60b. Ounces: 6 (12/21/2019 15:25:QS system process) 61. GA at Delivery Baby A: 41.2 (12/21/2019 15:25:Chelle Baidy, RN) : Late Term- 41- 41.6 Weeks (12/21/2019 15:25:QS system process) 62a. 5 Minute Baby A: 6 (12/21/2019 15:25:QS system process) 62b. 10 Minute Baby A: 8 (12/21/2019 15:25:QS system process)
[2020-01-09] MEDS: FAMOTIDINE 20 MG TABLET PO SCH ×2 (09:36→21:39)
[2020-01-09] MEDS: PRENATAL VITAMIN W DHA CAPSULE PO SCH (09:36)
[2020-01-09] MEDS: DOCUSATE SODIUM 100 MG CAPSULE PO SCH ×2 (09:36→17:03)
[2020-01-09] MEDS: FERROUS SULFATE 325 MG TABLET PO SCH ×2 (09:37→17:03)
[2020-01-09] MEDS: SENNOSIDES/DOCUSATE 8.6-50 MG 1 EACH TABLET PO SCH (09:37)
[2020-01-09] MEDS ORDERED: FOLIC PO SCH (10:00)
[2020-01-09] MEDS ORDERED: [UNRECOGNIZED DRUG - OTHER] PO SCH (10:00)
[2020-01-09] MEDS ORDERED: DSS PO SCH (10:00)
[2020-01-09] MEDS ORDERED: IRON FUM PO SCH (10:00)
[2020-01-09] MEDS ORDERED: PRENAT PO SCH (10:00)
[2020-01-09] MEDS: GENTAMICIN SULFATE 80 MG in DEXTROSE 5%-WATER 100 ML IV SCH ×3 (10:06→17:04)
[2020-01-09] MEDS: IBUPROFEN 800 MG TABLET PO SCH ×2 (13:21→21:40)
[2020-01-10] MEDS: AMPICILLIN SODIUM 2 GM in NORMAL SALINE 100 ML IV SCH ×3 (00:26→12:11)
[2020-01-10] MEDS: GENTAMICIN SULFATE 80 MG in DEXTROSE 5%-WATER 100 ML IV SCH ×2 (01:24→09:28)
[2020-01-10] MEDS: IBUPROFEN 800 MG TABLET PO SCH ×3 (05:38→22:17)
[2020-01-10 07:08] LABS: HEMATOCRIT 27.9 % (36.0-47.0); MEAN CORPUSCULAR HEMOGLOBIN 28.9 pg (27.0-33.4); MEAN CORPUSCULAR HGB CONC 33.9 g/dL (32.0-36.0); MEAN CORPUSCULAR VOLUME 85 fl (80-97); PLATELET COUNT 144 10^3/uL (150-450); RED BLOOD COUNT 3.27 10^6/uL (3.72-5.28); RED CELL DISTRIBUTION WIDTH 13.6 % (11.5-14.0); WHITE BLOOD COUNT 16.9 10^3/uL (4.0-10.5)
[2020-01-10 07:09] LABS: HEMOGLOBIN 9.4 g/dL (12.0-15.5)
--- NOTE | 2020-01-10 09:02 | RADIOLOGY REPORT (SQ) ---
EXAM DESCRIPTION: U/S NON-OB PELVIS W/O DOP IMAGES COMPLETED DATE/TIME: 01/10/2020 8:43 am REASON FOR STUDY: Deviated uterus to the left COMPARISON: None. TECHNIQUE: Dynamic and static grayscale images acquired of the pelvis via transabdominal approach an d recorded on PACS. Additional selected color Doppler and spectral images recorded. LIMITATIONS: None. FINDINGS: UTERUS: Uterus is 25 x 10 x 15 cm in size, for 1 day. ENDOMETRIAL STRIPE: 11 mm in thickness. Small amount of endometrial canal fluid. CERVIX: 10 cm in length with debris in the endocervical canal RIGHT OVARY AND DOPPLER: Not visualized due to adnexal bowel gas LEFT OVARY AND DOPPLER: Not visualized due to adnexal bowel gas FREE FLUID: None noted. OTHER: No other significant finding. IMPRESSION: 1 day uterus, 25 x 10 x 15 cm in size. Small amount of endometrial canal fluid. Moderate debris in the cervix likely blood clot. Ovaries not visualized TECHNICAL DOCUMENTATION: JOB ID: [id number] 2010 [employer]- All Rights Reserved Rev-07/01 Reading location - IP/workstation name: [email or web address]
[2020-01-10] MEDS: DOCUSATE SODIUM 100 MG CAPSULE PO SCH ×2 (09:29→17:10)
[2020-01-10] MEDS: PRENATAL VITAMIN W DHA CAPSULE PO SCH (09:33)
[2020-01-10] MEDS: FERROUS SULFATE 325 MG TABLET PO SCH ×2 (09:33→17:10)
[2020-01-10] MEDS: SENNOSIDES/DOCUSATE 8.6-50 MG 1 EACH TABLET PO SCH (09:33)
[2020-01-10] MEDS: FAMOTIDINE 20 MG TABLET PO SCH ×2 (09:47→22:17)
--- NOTE | 2020-01-10 12:26 | PDOC PROGRESS REPORT ---
Subjective-OB Progress Note for:: 01/10/20 Subjective: Pt doing well, no concerns. She reports light bleeding, reg diet and voiding w/o difficulty. Physical Exam (OB) Vital Signs: Temp Pulse Resp BP Pulse Ox 97.3 F 59 L 16 110/55 L 99 01/10/20 08:52 01/10/20 07:46 01/10/20 07:46 01/10/20 07:46 01/10/20 07:46 Intake & Output 01/09/20 01/10/20 01/11/20 06:59 06:59 06:59 Intake Total 1918 500 320 Output Total 350 Balance 9 500 -30 - PIH/Pre-Eclampsia Clonus: Negative Headache: Absent Epigastric Pain: No Visual Changes: No - Maternal Morbidity 59. Maternal Morbidity (serious complications experinced by the mother associated with labor and delivery: None of the above - Lochia Lochia Amount: Scant < 10 ml Lochia Color: Rubra/Red - Abdomen Description: Soft Hernia Present: No Fundal Description: Firm, Midline Describe if Not Midline: midline after void Fundal Height: u/u - u/2 Objective-Diagnostic Laboratory: 01/10/20 06:37 01/10/20 06:37 WBC 16.9 H RBC 3.27 L Hgb 9.4 L D Hct 27.9 L MCV 85 MCH 28.9 MCHC 33.9 RDW 13.6 Plt Count 144 L 01/07/20 19:03 Clean Catch Midstream Urine Culture - Final Escherichia Coli Assessment and Plan(PN) - Assessment and Plan (1) Vaginal delivery Is this a current diagnosis for this admission?: Yes (2) Chorioamnionitis Qualifiers: Fetus number: single or unspecified fetus Trimester: first trimester Qualified Code(s): O41.1210 - Chorioamnionitis, first trimester, not applicable or unspecified Is this a current diagnosis for this admission?: Yes (3) Encounter for induction of labor Is this a current diagnosis for this admission?: Yes (4) Post-dates Qualifiers: Post-term type: 40-42 weeks gestation Qualified Code(s): O48.0 - Post-term Is this a current diagnosis for this admission?: Yes (5) Pyelonephritis affecting Qualifiers: Trimester: third trimester Qualified Code(s): O23.03 - Infections of kidney in , third trimester Is this a current diagnosis for this admission?: Yes - Time Spent with Patient Time with patient: Less than 15 minutes Medications reviewed and adjusted accordingly: Yes - Disposition Anticipated Discharge Disposition: Home, Self Care Anticipated Discharge Timeframe: within 24 hours
[2020-01-11] MEDS: IBUPROFEN 800 MG TABLET PO SCH ×2 (05:09→13:25)
[2020-01-11] MEDS: DOCUSATE SODIUM 100 MG CAPSULE PO SCH ×2 (09:56→17:39)
[2020-01-11] MEDS: SENNOSIDES/DOCUSATE 8.6-50 MG 1 EACH TABLET PO SCH (09:56)
[2020-01-11] MEDS: FAMOTIDINE 20 MG TABLET PO SCH (09:56)
[2020-01-11] MEDS: PRENATAL VITAMIN W DHA CAPSULE PO SCH (09:56)
[2020-01-11] MEDS: FERROUS SULFATE 325 MG TABLET PO SCH ×2 (09:57→17:39)
--- NOTE | 2020-01-11 10:14 | PDOC DISCHARGE SUMMARY ---
Impression - Admit/DC Date/PCP Admission Date/Primary Care Provider: 01/07/20 18:55 JAYDEN GARCIA MD Discharge Date: 01/11/20 - Discharge Diagnosis (1) Vaginal delivery Is this a current diagnosis for this admission?: Yes (2) Chorioamnionitis Is this a current diagnosis for this admission?: Yes (3) Encounter for induction of labor Is this a current diagnosis for this admission?: Yes (4) Post-dates Is this a current diagnosis for this admission?: Yes (5) Pyelonephritis affecting Is this a current diagnosis for this admission?: Yes - Additional Information Resuscitation Status: Full Code Discharge Diet: Regular Discharge Activity: Balance Activity w/Rest, Pelvic Rest Referrals: JAYDEN GARCIA MD [Primary Care Provider] - Home Medications: Prenat 115/Iron Fum/Folic/Dss [ 19 Tablet] 1 each PO DAILY 12/21/19 HPI Gestational Age: 41.2 Reason(s) for Admission: Induction of Labor Procedures: NST Intrapartum Procedure(s): Spontaneous Vaginal Delivery Complication(s): Laceration-Labial Laceration-Degree: 1st Hospital Course 59. Maternal Morbidity (serious complications experinced by the mother associated with labor and delivery: None of the above Results Laboratory Results: WBC 16.9 10^3/uL (4.0-10.5) H 01/10/20 06:37 RBC 3.27 10^6/uL (3.72-5.28) L 01/10/20 06:37 Hgb 9.4 g/dL (12.0-15.5) L D 01/10/20 06:37 Hct 27.9 % (36.0-47.0) L 01/10/20 06:37 MCV 85 fl (80-97) 01/10/20 06:37 MCH 28.9 pg (27.0-33.4) 01/10/20 06:37 MCHC 33.9 g/dL (32.0-36.0) 01/10/20 06:37 RDW 13.6 % (11.5-14.0) 01/10/20 06:37 Plt Count 144 10^3/uL (150-450) L 01/10/20 06:37 Lymph % (Auto) 17.9 % (13-45) 01/07/20 19:24 [place] % (Auto) 7.6 % (3-13) 01/07/20 19:24 Eos % (Auto) 0.9 % (0-6) 01/07/20 19:24 Baso % (Auto) 0.2 % (0-2) 01/07/20 19:24 Absolute Neuts (auto) 6.6 10^3/uL (1.7-8.2) 01/07/20 19:24 Absolute Lymphs (auto) 1.6 10^3/uL (0.5-4.7) 01/07/20 19:24 Absolute Monos (auto) 0.7 10^3/uL (0.1-1.4) 01/07/20 19: Absolute Eos (auto) 0.1 10^3/uL (0.0-0.6) 01/07/20 19: Absolute Basos (auto) 0.0 10^3/uL (0.0-0.2) 01/07/20 19: Seg Neutrophils % 73.4 % (42-78) 01/07/20 19:24 POC Glucose 89 mg/dL (70-110) 01/08/20 09:30 Urine Color YELLOW 01/07/20 19:03 Urine Appearance CLOUDY 01/07/20 19:03 Urine pH 6.0 (5.0-9.0) 01/07/20 19:03 Ur Specific [place] 1.011 01/07/20 19:03 Urine Protein NEGATIVE mg/dL (NEGATIVE) 01/07/20 19:03 Urine Glucose (UA) NEGATIVE mg/dL (NEGATIVE) 01/07/20 19:03 Urine Ketones NEGATIVE mg/dL (NEGATIVE) 01/07/20 19:03 Urine Blood NEGATIVE (NEGATIVE) 01/07/20 19:03 Urine Nitrite NEGATIVE (NEGATIVE) 01/07/20 19:03 Urine Bilirubin NEGATIVE (NEGATIVE) 01/07/20 19:03 Urine Urobilinogen NEGATIVE mg/dL (<2.0) 01/07/20 19:03 Ur Leukocyte Esterase MODERATE (NEGATIVE) H 01/07/20 19:03 Urine Ascorbic Acid NEGATIVE (NEGATIVE) 01/07/20 19:03 Urine Opiates Screen NEGATIVE 01/07/20 19:03 Urine Methadone Screen NEGATIVE 01/07/20 19:03 Ur Barbiturates Screen NEGATIVE 01/07/20 19:03 Ur Phencyclidine Scrn NEGATIVE 01/07/20 19:03 Ur Amphetamines Screen NEGATIVE 01/07/20 19:03 U Benzodiazepines Scrn NEGATIVE 01/07/20 19:03 Urine Cocaine Screen NEGATIVE 01/07/20 19:03 U Marijuana (THC) Screen NEGATIVE 01/07/20 19:03 RPR NONREACTIVE (NONREACTIVE) 01/07/20 19:24 Blood Type O POSITIVE 01/07/20 19:24 Antibody Screen NEGATIVE 01/07/20 19:24 Impressions: Pelvis Ultrasound 01/10/20 00:00 IMPRESSION: 1 day uterus, 25 x 10 x 15 cm in size. Small amount of endometrial canal fluid. Moderate debris in the cervix likely blood clot. Ovaries not visualized Plan Plan of Treatment: f/u at [facility] 4wks
[2020-01-11 19:49] VITALS: BP 121/75
== END 2020-01-11 19:56 | disposition home or self-care (01) | DRG 805 ==
LOC: LR 18:55 → UNDODISIN 01-08 14:58 → 2S 01-09 09:06
PROVIDERS: ADMIT Obstetrics & Gynecology; ATTEND Obstetrics & Gynecology
PROC: 3E033VJ Introduction of Other Hormone into Peripheral Vein, Percutaneous Approach (ICD-10-PCS; 2020-01-08)
PROC: 10E0XZZ Delivery of Products of Conception, External Approach (ICD-10-PCS; principal; 2020-01-09)
PROC: 0UQMXZZ Repair Vulva, External Approach (ICD-10-PCS; 2020-01-09)
DX: O48.0 Post-term pregnancy (principal); O41.1230 Chorioamnionitis, third trimester, not applicable or unspecified; Z37.0 Single live birth; N12 Tubulo-interstitial nephritis, not specified as acute or chronic; O23.03 Infections of kidney in pregnancy, third trimester; O70.0 First degree perineal laceration during delivery; B96.20 Unspecified Escherichia coli [E. coli] as the cause of diseases classified elsewhere; O24.420 Gestational diabetes mellitus in childbirth, diet controlled; O69.1XX0 Labor and delivery complicated by cord around neck, with compression, not applicable or unspecified; Z20.828 Contact with and (suspected) exposure to other viral communicable diseases; Z28.21 Immunization not carried out because of patient refusal; Z3A.41 41 weeks gestation of pregnancy
CPT/HCPCS: 1967; 36415; 76856; 80307; 81005; 82962; 85025; 85027; 86592; 86850; 86900; 86901; 87086; 87088; 87186; 88307; J0290; J1200; J1580; J2300; J2405; J2550; J2590; J2795; J3010; J3490; J7050; J7060